=== PATIENT | female | born 1965 | race Caucasian/White ===

== ENCOUNTER 2019-08-07 12:14 | Day surgery (SDC) | payer OTHER ==
[~2019-08-07] VITALS: Ht 162.6 cm; Wt 97.0 kg
[~2019-08-07 12:14] MED LIST: MELATONIN; SERT50TA6 PO
[2019-08-07] MEDS ORDERED: ONDANSETRON 4 MG INJ ONE (12:57)
[2019-08-07 13:02] VITALS: Ht 162.6 cm; Wt 97.0 kg
[2019-08-07 13:10] VITALS: BP 126/61; PULSE 66; RESP 16
[2019-08-07] MEDS ORDERED: GLYCOPYRROLATE 0.4 MG INJ ONE (15:00)
[2019-08-07] MEDS ORDERED: LIDOCAINE 2% (SDV) 5 ML INJ ONE (15:00)
[2019-08-07] MEDS ORDERED: PROPOFOL 40 ML ONE (15:06)
[2019-08-07 16:41] VITALS: BP 120/58; RESP 18
== END 2019-08-07 16:17 | disposition home or self-care (01) ==
LOC: GIL 12:14
PROVIDERS: ATTEND Internal Medicine Gastroenterology
DX: Z12.11 Encounter for screening for malignant neoplasm of colon (principal); D12.5 Benign neoplasm of sigmoid colon; K64.8 Other hemorrhoids; K29.70 Gastritis, unspecified, without bleeding
CPT/HCPCS: 43239; 45385; J2405; Z7610; 88305